=== PATIENT | female | born 1965 | race Caucasian/White ===

== ENCOUNTER 2017-01-20 16:08 | Emergency (ER) | payer SELFPAY ==
[~2017-01-20 16:08] MED LIST: ALBU18HF IH; ASPI-612 PO; ATOR20TA PO; CITA40TA12 PO; CYCL-331 PO; HYDR-971 PO; LISI10TA2 PO; METF500T4 PO; OXYC-323 PO
[2017-01-20 16:25] VITALS: BP 130/77
--- NOTE | 2017-01-20 16:36 | PHYS DOC ---
Past History Past Medical History: Anxiety, Depression, Diabetes, Hypertension, Hypothyroid , Other Past Surgical History: Appendectomy Smoking: Greater than 1 pack/day Alcohol Use: None Drug Use: Marijuana Adult General Chief Complaint Chief Complaint: FOOT INJURY PAIN HPI HPI Patient is a 51 year old female who presents with complaint of pain to the right foot and ankle. Patient states that she suffered a fall 2 days ago after tripping over her sandal. Patient states that her foot inverted at the time of the fall. Patient states that she had difficulty with ambulation immediately after the fall and has not been able to bear full weight on the right lower extremity secondary to pain in her right ankle and foot. Patient notes that she has had swelling and bruising along the lateral aspect of her right foot and ankle. Patient states that she has been taking ibuprofen with no relief in symptoms. Patient rates her pain as 6 out of 10 currently. Patient denies any other injuries. Review of Systems Review of Systems Constitutional: Denies fever or chills [] Eyes: Denies change in visual acuity, redness, or eye pain [] HENT: Denies nasal congestion or sore throat [] Musculoskeletal: Right ankle and foot pain [] Integument: Denies rash or skin lesions [] Neurologic: Denies headache, focal weakness or sensory changes [] Current Medications Current Medications Current Medications Medications (Trade) Dose Ordered Sig/[facility] Start Time Stop Time Status Last Admin Dose Admin Acetaminophen/ Hydrocodone Bitart (Lortab 5/325) 1 tab 1X ONCE 01/20/17 16:45 01/20/17 16:46 DC 01/20/17 16:46 1 TAB Ibuprofen (Motrin) 600 mg 1X ONCE 01/20/17 16:45 01/20/17 16:46 DC 01/20/17 16:46 600 MG Allergies Allergies Allergies Coded Allergies Type Severity Reaction Last Updated Verified No Known Drug Allergies 02/17/14 No Physical Exam Physical Exam Constitutional: Alert, afebrile, appears in mild discomfort. [] HENT: Normocephalic, atraumatic, bilateral external ears normal, oropharynx moist, no oral exudates, nose normal. [] Lungs & Thorax: Bilateral breath sounds clear to auscultation [] Extremities: Right ankle and foot with mild to moderate soft tissue swelling and ecchymosis present, tenderness palpation over right lateral malleolus and along lateral aspect of the right foot, range of motion limited secondary to pain, neurovascularly intact distal to injury. [] Neurologic: Alert and oriented X 3, normal motor function, normal sensory function, no focal deficits noted. [] Current Patient Data Vital Signs Vital Signs Date Time Temp Pulse Resp B/P (MAP) Pulse Ox O2 Delivery O2 Flow Rate FiO2 01/20/17 16:25 97.8 58 22 97 Room Air EKG EKG Not performed [] Radiology/Procedures Radiology/Procedures [address] [address] IMAGING REPORT Signed PATIENT: CARLOS BOLDEN ACCOUNT: [id number] : 1965 LOCATION: ER AGE: 51 SEX: F EXAM [id number] STATUS: REG ER ORD. PHYSICIAN: EFREN MALONE MD REASON: right ankle and foot injury 2 days ago PROCEDURE: ANKLE RIGHT 3V; FOOT RIGHT 3V Examination: 3 views of the right ankle and right foot History: History of foot injury from sliding of the sidewalk 2 days back Comparison: None available Findings: The alignment of the ankle joint grossly appears unremarkable. The alignment of the tarsal bones grossly appears unremarkable. The alignment of the metatarsophalangeal joints, interphalangeal grossly appears unremarkable. Small bony density identified plantar to the cuboid bone probably os cuboideum. Impression: No acute osseous findings DICTATED AND SIGNED BY: KONG CHIU MD DATE: 01/20/17 1646 CC: EFREN MALONE MD; LEONARDO MURRY MD ~ [] Course & Med Decision Making Course & Med Decision Making Pertinent Labs and Imaging studies reviewed. (See chart for details) Patient's x-rays were negative for fracture. Patient's right foot and ankle were placed in an Erik bandage and patient was provided crutches to assist with ambulation. Patient prescribed [place] and ibuprofen for treatment of symptoms. Advised follow-up with primary doctor in 7-10 days if symptoms not improving and return to the emergency department for any worsening symptoms. Patient voiced understanding and in agreement with treatment plan. Dragon Disclaimer Dragon Disclaimer This chart was dictated in whole or in part using Voice Recognition software in a busy, high-work load, and often noisy Emergency Department environment. It may contain unintended and wholly unrecognized errors or omissions. Departure Departure: Impression: Primary Impression: Right foot sprain Additional Impression: Right ankle sprain Disposition: 01 HOME, SELF-CARE Condition: IMPROVED Referrals: LEONARDO MURRY MD (PCP) Patient Instructions: Ankle Sprain, Foot Sprain, RICE - Routine Care for Injuries Additional Instructions: Follow-up with primary doctor in the next 7-10 days of symptoms are not improving. Return to emergency department for any worsening symptoms. Scripts Ibuprofen (IBUPROFEN) 600 Mg Tablet 600 MG PO Q6HRS Y for PAIN, #30 TAB Prov: EFREN MALONE MD 01/20/17 Hydrocodone Bit/Acetaminophen (NORCO 5-325 TABLET) 1 Each Tablet 1-2 TAB PO Q4-6HRS Y for PAIN, #20 TAB Prov: EFREN MALONE MD 01/20/17 Problem Qualifiers Primary Impression: Right foot sprain Encounter type: initial encounter Qualified Codes: S93.601A - Unspecified sprain of right foot, initial encounter Additional Impression: Right ankle sprain Encounter type: initial encounter Involved ligament of ankle: unspecified ligament Qualified Codes: S93.401A - Sprain of unspecified ligament of right ankle, initial encounter EFREN MALONE MD Jan 20, 2017 16:36
[2017-01-20] MEDS ORDERED: HYDROcodone/APAP 5/325MG 1 TAB TABLET PO ONE (16:45)
[2017-01-20] MEDS ORDERED: IBUPROFEN 600 MG TABLET. PO ONE (16:45)
--- NOTE | 2017-01-20 16:54 | RAD ---
Examination: 3 views of the right ankle and right foot History: History of foot injury from sliding of the sidewalk 2 days back Comparison: None available Findings: The alignment of the ankle joint grossly appears unremarkable. The alignment of the tarsal bones grossly appears unremarkable. The alignment of the metatarsophalangeal joints, interphalangeal grossly appears unremarkable. Small bony density identified plantar to the cuboid bone probably os cuboideum. Impression: No acute osseous findings
[2017-01-20] MEDS ORDERED: HYDR-971 PO (16:59)
[2017-01-20] MEDS ORDERED: IBUP600T16 PO (16:59)
== END 2017-01-20 17:21 | disposition home or self-care (01) ==
LOC: ER 16:08
DX: S93.601A Unspecified sprain of right foot, initial encounter (principal); S93.401A Sprain of unspecified ligament of right ankle, initial encounter; I10 Essential (primary) hypertension; E03.9 Hypothyroidism, unspecified; E11.9 Type 2 diabetes mellitus without complications; F17.200 Nicotine dependence, unspecified, uncomplicated; F12.10 Cannabis abuse, uncomplicated; W01.0XXA Fall on same level from slipping, tripping and stumbling without subsequent striking against object, initial encounter; Y93.89 Activity, other specified; Y99.8 Other external cause status; Y92.89 Other specified places as the place of occurrence of the external cause
CPT/HCPCS: 73610; 73630; 99284

== ENCOUNTER 2017-04-25 19:41 | Emergency (ER) | payer SELFPAY ==
[~2017-04-25] VITALS: Ht 167.6 cm; Wt 87.1 kg
[~2017-04-25 19:41] MED LIST changes: +IBUP600T16 PO
[2017-04-25 20:04] VITALS: BP 159/86
[2017-04-25] MEDS ORDERED: MVI, ADULT NO.4 WITH VIT K 10 ML, FOLIC ACID 1 MG, THIAMINE 100 MG in IV NORMAL SALINE ... IV ONE ×8 (20:30→20:45)
[2017-04-25] MEDS ORDERED: MVI, ADULT NO.4 WITH VIT K 10 ML VIAL IV ONE (20:40)
[2017-04-25] MEDS ORDERED: THIAMINE IM 200 MG/2 ML VIAL. IM ONE (20:40)
[2017-04-25] MEDS ORDERED: FOLIC ACID 5 MG/ML SYRINGE for ER IV ONE (20:41)
[2017-04-25 20:43] LABS: AMPHETAMINE/METHAMPHETAMINE POS (NEG); BARBITURATES NEG (NEG); BENZODIAZEPINES NEG (NEG); CANNABINOIDS POS (NEG); COCAINE NEG (NEG); METHADONE NEG (NEG); OPIATES NEG (NEG); PHENCYCLIDINE NEG (NEG)
[2017-04-25 20:44] LABS: BASO # 0.1 x10^3/uL (0.0-0.2); BASO % 0 % (0-3); EOS # 0.1 x10^3/uL (0.0-0.7); EOS % 1 % (0-3); HEMATOCRIT 39.4 % (36.0-47.0); HEMOGLOBIN 13.9 g/dL (12.0-15.5); LYMPH # 2.8 x10^3/uL (1.0-4.8); LYMPH % 20 % (24-48); MEAN CORPUSCULAR HEMOGLOBIN 33 pg (25-35); MEAN CORPUSCULAR HGB CONC 35 g/dL (31-37); MEAN CORPUSCULAR VOLUME 93 fL (79-100); MONO # 0.9 x10^3/uL (0.0-1.1); MONO % 6 % (0-9); NEUT # 10.2 x10^3uL (1.8-7.7); NEUT % 73 % (31-73); PLATELET COUNT 248 x10^3/uL (140-400); RED BLOOD COUNT 4.26 x10^6/uL (3.50-5.40); RED CELL DISTRIBUTION WIDTH 12.4 % (11.5-14.5)
[2017-04-25 20:46] LABS: CALCIUM 8.5 mg/dL (8.5-10.1); CREATININE 0.8 mg/dL (0.6-1.0); DIRECT BILIRUBIN 0.1 mg/dL (0.0-0.2); GFR 75.9; MAGNESIUM 1.6 mg/dL (1.8-2.4); POTASSIUM 4.1 mmol/L (3.5-5.1); TOTAL BILIRUBIN 0.3 mg/dL (0.2-1.0); TOTAL PROTEIN 7.8 g/dL (6.4-8.2)
[2017-04-25 20:52] LABS: BILIRUBIN,URINE NEG (NEG); CLARITY,URINE HAZY; COLOR,URINE YELLOW; GLUCOSE,URINE NEG (NEG); NITRITE,URINE NEG (NEG); UROBILINOGEN,URINE 0.2 mg/dL (0.2 mg/dL)
[2017-04-25 21:09] LABS: BACTERIA,URINE FEW /HPF (0-FEW); RBC,URINE >40 /HPF (0-2); SQUAMOUS EPITHELIAL CELL,UR MANY /LPF
[2017-04-25 21:23] LABS: TRICHOMONAS,URINE PRESENT
--- NOTE | 2017-04-25 22:29 | PHYS DOC ---
General Chief Complaint: VAGINAL BLEEDING Stated Complaint: VAGINAL BLEEDING Time Seen by MD: 19:43 Source: patient, old records Exam Limitations: intoxication Problems: History of Present Illness Initial Comments Pt is 51/F to ED c/o vaginal bleeding. Pt states she's had intermittent vaginal bleeding for the past 3-4 days. She's had low abdominal cramping, denies n/v or change in BMs. She's been menopausal for at least two years, G1 with a miscarriage at 15 years old. Denies vaginal discharge, denies intercourse for years due to dyspareunia. She's not been using pads and states she's soiled three sets of clothes today. Etoh odor noted , she admits to drinking earlier denies intoxication. History changes thru interview, she denies having a doctor but takes metformin/ lisinopril daily (cannot recall who prescribes) denies other medications. Denies CP/SOB/fever/THOMPSON/focal neurodef/night sweats/immunocompromise/unexplained weight loss or other symptoms. 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 Currently smokes 1.5 PPD denies illicit. Timing/Duration: other (4 days) Severity: severe Modifying Factors: improves with other Associated Symptoms: other Allergies: Coded Allergies: No Known Drug Allergies (Unverified , 02/17/14) Past Medical History Medical History: diabetes, other (HTN, DM, HLP, hypothyroid, COPD, anxiety, depression) Surgical History: appendectomy (ovarian cyst) Family History Significant Family History: heart disease Social History Smoker: greater than 1 pack/day Alcohol: other (intoxicated) Drugs: marijuana Review of Systems Constitutional: denies chills, denies diaphoresis, denies fever, denies malaise Respiratory: denies cough, denies shortness of breath, denies wheezing Cardiovascular: denies chest pain, denies palpitations, denies syncope Gastrointestinal: see HPI, denies diarrhea, denies nausea, denies vomiting Genitourinary: see HPI Musculoskeletal: denies back pain, denies joint pain, denies neck pain Psychiatric/Neurological: see HPI, denies headache, denies numbness, denies paresthesia Hematologic/Lymphatic: denies blood clots, denies easy bleeding, denies easy bruising Physical Exam General Appearance: no apparent distress (disheveled, intoxicated) Eyes: bilateral eye PERRL, bilateral eye EOMI, bilateral eye other ( conjunctivae injected) Ear, Nose, Throat: hearing grossly normal, normal ENT inspection, normal pharynx Neck: non-tender, supple Respiratory: normal breath sounds, no respiratory distress Cardiovascular: normal peripheral pulses, regular rate, rhythm Gastrointestinal: normal bowel sounds, soft (mild suprapubic TTP no r/g, no mass), no organomegaly Back: no CVA tenderness, no vertebral tenderness Extremities: non-tender, normal inspection Neurologic/Psychiatric: 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 Interpreted by Dr Pandey WBC 14, glucose 140, mag 1.6, etoh 173, UDS + methamphetamine and cannabinoids. Trichomonas noted in urine. 2352: Prolonged ED course as US had to be called in and was delayed with studies at [facility]. PATIENT: CARLOS BOLDEN ACCOUNT: [id number] : 1965 LOCATION: ER AGE: 51 SEX: F EXAM STATUS: REG ER ORD. PHYSICIAN: TARA PANDEY DO REASON: DUB PROCEDURE: US PELVIS W/TV Pelvic ultrasound History: Dysfunctional uterine bleeding beginning approximately one week ago. Postmenopausal by 2 years. Comparison: None. Technique: Transabdominal ultrasound was performed to evaluate the uterine fundus. Endovaginal imaging was performed to evaluate optimally the endometrial canal and lower uterine segment. TRANSABDOMINAL IMAGING Findings: The uterus measures 8.6 cm in length and is unremarkable. The endometrium measures 8 mm. Right ovary measures 3.8 x 4.2 x 2.9 cm and is unremarkable. The left ovary measures 3.4 x 2.0 x 2.5 cm and is unremarkable. No adnexal masses are identified. No significant free fluid is identified within the pelvis. ENDOVAGINAL IMAGING Findings: Endocervical polyp measuring about 11 mm is seen. A central vascular stalk is present. The uterus measures 7.1 cm in length and is unremarkable. The endometrium measures 4 mm. Right ovary measures 4.4 x 2.7 x 3.5 cm and demonstrates a exophytic cyst measuring 4.3 cm. The left ovary measures 2.4 x 1.4 x 2.5 cm and is unremarkable. Both ovaries demonstrate normal vascular flow upon Doppler interrogation and are without evidence of torsion. Impression: 1. Endocervical polyp is seen measuring 11 mm. This could be cause for vaginal bleeding. 2. With endovaginal imaging, endometrial thickness is 4 mm, within normal limits for a postmenopausal female. 3. Right ovary demonstrates exophytic cyst measuring 4.3 cm. Electronically signed by: Martin Brown MD (04/25/2017 11:46 PM) [facility] DICTATED AND SIGNED BY: MARTIN BROWN MD DATE: 04/25/172339 CC: LEONARDO MURRY MD; TARA PANDEY DO ~ [id number]: RN notifies me that the patient has become impatient. She has sobered up and is no longer as agreeable as at initial presentation. She is threatening to leave MATHER, RN trying to get her to wait. IMPRESSIONS: Dysfunctional Uterine Bleeding 4.3 cm right ovarian cyst uncertain behavior Endocervical polyp Alcohol Intoxication Trichomoniasis Amphetamine/methamphetamine abuse Marijuana abuse Tobaccoism Departure Time of Disposition: 00:07 Disposition: 01 HOME, SELF-CARE Diagnosis: R Ovarian cyst, trichomoniasis, amphetamine/alcoho Condition: IMPROVED Patient Instructions: Ovarian Cyst, [id number], Smoking Hazards, Substance Abuse-Brief, Trichomoniasis-Brief, Uterine Bleeding, Dysfunctional, [id number] Additional Instructions: No driving or operating machinery while under influence of alcohol or drugs. Stop smoking, seek medical assistance if necessary. Drink alcohol responsibly, seek medical assistance if you feel you might have an alcohol problem. Discontinue amphetamine/methamphetamine and marijuana abuse. Take a multivitamin daily. OTC ibuprofen for discomfort. Continue current medications. Rx: metronidazole (no alcohol with this medication you will get ill with abdominal pain and vomitting). No emergent cause of your vaginal bleeding was identified tonight. You must follow up with a meat grading machine operator for further evaluation of the right ovarian cyst, as cancer has not been ruled out. While waiting for your disability, consider utilizing [facility] resource available to you for ED visit follow up for chronic health maintenance and gynecologic follow up. Return to ED with new or changing emergent condition. TARA PANDEY DO Apr 25, 2017 22:29
--- NOTE | 2017-04-25 23:49 | RAD ---
Pelvic ultrasound History: Dysfunctional uterine bleeding beginning approximately one week ago. Postmenopausal by 2 years. Comparison: None. Technique: Transabdominal ultrasound was performed to evaluate the uterine fundus. Endovaginal imaging was performed to evaluate optimally the endometrial canal and lower uterine segment. TRANSABDOMINAL IMAGING Findings: The uterus measures 8.6 cm in length and is unremarkable. The endometrium measures 8 mm. Right ovary measures 3.8 x 4.2 x 2.9 cm and is unremarkable. The left ovary measures 3.4 x 2.0 x 2.5 cm and is unremarkable. No adnexal masses are identified. No significant free fluid is identified within the pelvis. ENDOVAGINAL IMAGING Findings: Endocervical polyp measuring about 11 mm is seen. A central vascular stalk is present. The uterus measures 7.1 cm in length and is unremarkable. The endometrium measures 4 mm. Right ovary measures 4.4 x 2.7 x 3.5 cm and demonstrates a exophytic cyst measuring 4.3 cm. The left ovary measures 2.4 x 1.4 x 2.5 cm and is unremarkable. Both ovaries demonstrate normal vascular flow upon Doppler interrogation and are without evidence of torsion. Impression: 1. Endocervical polyp is seen measuring 11 mm. This could be cause for vaginal bleeding. 2. With endovaginal imaging, endometrial thickness is 4 mm, within normal limits for a postmenopausal female. 3. Right ovary demonstrates exophytic cyst measuring 4.3 cm. Electronically signed by: Martin Garrett MD (04/25/2017 11:46 PM) [facility]
[2017-04-26] MEDS ORDERED: METR500T8 PO (00:07)
--- NOTE | 2017-04-26 06:05 | EKG ---
[address] [address] Test Date: 2017-04-25 Test Time: 21:41:59 Pat Name: CARLOS BOLDEN Department: Room: Gender: F Anesthesiology Faculty: DAIANA : 1965 Requested By: TARA PANDEY Order Number: [id number] Reading MD: Measurements Intervals [place] Rate: 61 P: 45 ND: 152 QRS: 5 QRSD: 102 T: 108 QT: 486 QTc: 491 Interpretive Statements SINUS RHYTHM QRS(T) CONTOUR ABNORMALITY CONSIDER ANTEROSEPTAL MYOCARDIAL DAMAGE T ABNORMALITY IN LATERAL LEADS INFEROLATERAL LEADS PROLONGED QT ABNORMAL ECG RI6.01 No previous ECG available for comparison
== END 2017-04-26 00:28 | disposition home or self-care (01) ==
LOC: ER 19:41
DX: N83.201 Unspecified ovarian cyst, right side (principal); N84.1 Polyp of cervix uteri; N93.8 Other specified abnormal uterine and vaginal bleeding; F10.129 Alcohol abuse with intoxication, unspecified; A59.9 Trichomoniasis, unspecified; F15.10 Other stimulant abuse, uncomplicated; F17.200 Nicotine dependence, unspecified, uncomplicated; F12.10 Cannabis abuse, uncomplicated; E11.9 Type 2 diabetes mellitus without complications; I10 Essential (primary) hypertension; E78.5 Hyperlipidemia, unspecified; E03.9 Hypothyroidism, unspecified; J44.9 Chronic obstructive pulmonary disease, unspecified; Z78.0 Asymptomatic menopausal state
CPT/HCPCS: 36415; 76830; 76856; 80048; 80076; 80307; 81001; 83735; 84702; 85025; 85610; 85730; 87086; 93005; 96365; 96366; 99285; G0480; G0479; J7030